=== PATIENT | female | born 1985 | race Caucasian/White ===

== ENCOUNTER → 2019-12-26 | Emergency (ER) | payer BC ==
[~2019-12-26] MED LIST: Ampicillin/Sulbactam 3 GM VIAL ONE; Iopamidol 370 76% 100 ML VIAL ONE; Sodium Chloride 0.9% 100 ML ONE
[2019-12-26 07:40] LABS: Bilirubin Small (Negative); Blood, Urine Negative (Negative); Clarity Slightly Cloudy (Clear); Glucose, Urine (Dipstick) 100 mg/dL (Negative); Ketone, Urine 80 mg/dL (Negative); Leukocyte Negative (Negative); Nitrite Negative (Negative); Protein, Urine (Dipstick) 30 mg/dL (Neg-Trace); Urobilinogen > or = 8.0 mg/dL (Less than 2)
[2019-12-26 07:43] LABS: Bacteria/HPF 2+ HPF (None Seen); Mucous/LPF 4+ LPF (<2+); RBC/HPF 0-3 HPF (0-3); Squamous Epithelial 0-3 HPF (0-3); WBC/HPF 0-3 HPF (0-3)
[2019-12-26 07:44] LABS: Pregnancy Test - Urine (BHCG) Negative (Negative); Pregu Control Background? CLEAR/WHITE (CLR/WHITE); Pregu Control Bar Appear? YES (CONTROL BAR)
[2019-12-26 07:54] LABS: #Eosinphils 0.1 thou/uL (0.0-0.7); #Monocytes 0.4 thou/uL (0.11-0.59); #Neutrophils 5.8 thou/uL (1.40-6.50); %Basophils 0.4 % (0.0-1.0); %Eosinophils 1.2 % (0.0-10.0); %Lymphocytes 13.4 % (21.0-51.0); %Monocytes 5.8 % (0.0-10.0); %Neutrophils 79.1 % (42.0-75.0); Hemoglobin 12.8 g/dL (12.0-16.0); Mean Corpuscular HGB CONC 31.4 g/dL (32.0-36.0); Mean Corpuscular Hemoglobin 30.6 pg (27.0-31.0); Mean Corpuscular Volume 97.5 fL (78.0-98.0); Mean Platelet Volume 8.5 fL (7.4-10.4); Platelet Count 151 thou/uL (130-400); RBC Distribution Width 11.6 % (11.5-14.5); Red Blood Cell (RBC) Count 4.17 mill/uL (4.20-5.40); White Blood Cell (WBC) Count 7.3 thou/uL (4.8-10.8)
[2019-12-26 08:10] LABS: ALT (SGPT) 8 U/L (8-55); AST (SGOT) 14 U/L (5-34); Albumin 4.6 g/dL (3.5-5.0); Alkaline Phosphatase 44 U/L (40-110); Anion Gap 15 mmol/L (10-20); BUN (Urea Nitrogen) 8 mg/dL (7.0-18.7); Bilirubin, Total 0.9 mg/dL (0.2-1.2); Calc. Creatinine Clearance 0 mL/min (70-130); Calcium 9.2 mg/dL (7.8-10.44); Carbon Dioxide 23 mmol/L (22-29); Chloride 104 mmol/L (98-107); Estimated GFR-MDRD 86; Globulin 3.3 g/dL (2.4-3.5); Glucose 112 mg/dL (70-105); Lipase 13 U/L (8-78); Potassium 3.8 mmol/L (3.5-5.1); Protein, Total 7.9 g/dL (6.0-8.3); Sodium 138 mmol/L (136-145)
--- NOTE | 2019-12-26 10:47 | CT ---
CT ABDOMEN AND PELVIS WITH CONTRAST: DATE: 12/26/2019. FINDINGS: Spiral CT of the abdomen and pelvis was done for evaluation of right lower quadrant pain. Axial slic es were acquired after giving IV contrast. Oral contrast was withheld by request. It is difficult to see structures in the pelvis well due to multiple loops of unopacified bowel. Nev ertheless, there appears to be a tubular fluid-filled structure in the vicinity of the appendix with some slight enhancement of its tobin and a little bit of haziness in the surrounding fat. It is 10 mm wide. The findings suggest probable acute appendicitis. I can find no definite sign of rupture, bu t it is difficult to assess well due to all of the loops of unopacified bowel. No free air or free f luid was detected, save for a very trace amount of fluid in the cul-de-sac. I would also mention mirian t there is a trace of fluid around the patient's gallbladder. The gallbladder itself is generous in size but not excessive (8.6 cm). It has no stones in it or wall thickening. The remainder of the examination showed no acute change. The lung bases are clear. The liver, splee n, pancreas, adrenal glands, kidneys, and abdominal aorta were unremarkable. The CT of the pelvis was remarkable for the right lower quadrant findings. A uterus is noted with IU D in place. It is difficult to assess either ovary. Only a small trace of fluid was seen in the cul -de-sac which is potentially physiologic. Some very minor concentric bulging of the L4-L5 disk was n oted. Otherwise, the lumbar spine appeared normal. IMPRESSION: Findings suggestive of probable acute appendicitis. See comments above. Report discussed with Dr. Varela at 0826 on 12/26/2019. CODE CR POS: HOME
== END ==
LOC: BURERS 07:17
DX: K37 Unspecified appendicitis (principal); F41.9 Anxiety disorder, unspecified; Z79.899 Other long term (current) drug therapy
CPT/HCPCS: 74177; 80053; 81003; 81015; 81025; 83605; 83690; 85025; 87040; 94760; 96374; J0295; J3490; Q9967